=== PATIENT | male | born 1990 | race American Indian/Alaskan Native ===

== ENCOUNTER 2021-12-18 23:21 | Emergency (ER) | payer SELFPAY ==
[2021-12-18 23:30] VITALS: BP 191/101
== END 2021-12-19 13:20 | disposition left against medical advice (07) ==
LOC: ED 23:21
DX: K62.89 Other specified diseases of anus and rectum (principal); Z53.21 Procedure and treatment not carried out due to patient leaving prior to being seen by health care provider